=== PATIENT | female | born 1970 | race Caucasian/White ===

== ENCOUNTER 2017-07-14 08:33 | Emergency (ER) | payer SELFPAY ==
--- NOTE | ~2017-07-14 | ER ---
PATIENT'S NAME: AUDREY TERRELL [facility] AGE: 47 Y [address] ROOM: [place] [address] LOCATION: ED ADMIT DATE: 07/14/2017 ER/Outpatient Report DISCHARGE DATE: 07/14/2017 FAMILY PHYSICIAN: , SONIYA ATTENDING PHYSICIAN: Cheyenne Maire Time of Arrival: 0833 hours. Time of Evaluation/Seen: 0838 hours. IDENTIFICATION: A 47-year-old female. CHIEF COMPLAINT: Shortness of breath. HISTORY OF PRESENT ILLNESS: The patient is a 47-year-old female from [place] here visiting in [place] today and will be traveling [place], [place] next, who has COPD and has been more short of breath with increased cough for the last few days. Cough is nonproductive. She has no fever, but she has felt chilled. She has no other problems or concerns. She is using her albuterol nebulizer without relief. She was on prednisone just over a week ago. PAST MEDICAL HISTORY: ALLERGIES: SULFA. CURRENT MEDICATIONS: 1. Gabapentin 800 mg t.i.d. 2. Albuterol nebulizer p.r.n. MEDICAL PROBLEMS: 1. COPD. 2. Back and neck pain. 3. Neuropathy. PAST SURGICAL HISTORY: Prior Surgeries: 1. section x3. 2. Ureteral surgery x2 as a child. SOCIAL HISTORY: The patient lives in [place]. Tobacco use, 1/2 pack per day. Alcohol use, denies. Drug use, denies. PATIENT'S NAME: AUDREY TERRELL [facility] AGE: 47 Y [address] ROOM: [place] [address] LOCATION: ED ADMIT DATE: 07/14/2017 ER/Outpatient Report DISCHARGE DATE: 07/14/2017 FAMILY PHYSICIAN: PHYSICIAN, SOINYA ATTENDING PHYSICIAN: Cheyenne Marie REVIEW OF SYSTEMS: All systems were reviewed and negative other than what is noted in the HPI. The patient did get out while traveling every 2 hours and walk. She has had no increased lower extremity edema. The patient did fall yesterday and landed on her left knee and is complaining of left knee pain. PHYSICAL EXAMINATION: VITAL SIGNS: Weight 47.9 kg. Blood pressure 140/104, recheck blood pressure was 142/87, pulse 104, repeat pulse 93, respiratory rate is 28, repeat respiratory rate is 18, temperature 96.7, and saturations 97% on room air. GENERAL: A 47-year-old female, in no acute distress. HEENT: Head; normocephalic and atraumatic. Ears; TMs translucent in both ears. Nose; mucosa pink, no lesions. Mouth; no lesions. Pharynx, benign. NECK: Supple. No lymphadenopathy. LUNGS: Diminished breath sounds. No wheezes. HEART: Sinus tachycardia. No murmur, rub, or gallop. ABDOMEN: Bowel sounds present. Soft, nondistended, and nontender. SKIN: [place], warm, and dry. No lesions or rashes noted. NEUROLOGIC: No focal deficit. No lower extremity edema. She does have chronic scarring on both of her legs. EXTREMITIES: Left knee tender to palpation. Full range of motion. No swelling or deformities noted. LABORATORY DATA AND IMAGING STUDIES: X-ray, no acute fracture or dislocation. Pending Radiology over-read. Chest x-ray, 2 view, no acute findings. Pending Radiology over-read. DuoNeb aerosol treatment was given as well as 125 mg of IV Solu-Medrol. Her symptoms improved. Her heart rate came down. Her blood pressure improved, and she was feeling much better. Laboratory work; procalcitonin is less than 0.05. White count 13.9, normal differential, hemoglobin 13.2, hematocrit 38.4, and platelets 312,000. Lactate 3.0. Sodium 137, potassium 4.5, chloride 105, CO2 of 23, BUN 12, creatinine 0.8, and blood sugar 120. Liver enzymes, normal. Cardiac enzymes, negative. ProBNP 118. D-dimer is less than 0.19. EKG; normal sinus rhythm at 96 beats per minute. No acute ST elevation or depression. IMPRESSION: 1. Chronic obstructive pulmonary disease exacerbation. 2. Left knee pain. 3. Neuropathy. PLAN: 1. Albuterol aerosol treatment q.4 hours p.r.n., prednisone 20 mg b.i.d. for PATIENT'S NAME: AUDREY TERRELL [facility] AGE: 47 Y [address] ROOM: [place] [address] LOCATION: [facility] ADMIT DATE: 07/14/2017 ER/Outpatient Report DISCHARGE DATE: 07/14/2017 FAMILY PHYSICIAN: PHYSICIAN, NO ATTENDING PHYSICIAN: Cheyenne Marie 5 days. Follow up immediately if any respiratory distress. Otherwise, follow up with primary care physician in 1 week. 2. Left knee pain. No fracture. Matt, ice, and elevate. Crutches and weight bear as tolerated. Anti-inflammatories or Tylenol, and follow up as needed. 3. Neuropathy and chronic pain. She requested a refill of some Neurontin to get her by until she returns home. I did give her, dispensed #20, 800 mg t.i.d. The patient understands and agrees, and all questions have been answered. CHEYENNE MARIE MD CAR/lili /[id number] d: 07/14/17 1645 t: 07/22/171, OUTPATIENT REPORT
[2017-07-14 09:03] LABS: BASOPHIL % 0.3 %; EOSINOPHIL % 0.2 %; HEMATOCRIT 38.4 % (33.0-46.0); HEMOGLOBIN 13.2 g/dL (10.0-15.0); IMMATURE GRANULOCYTE # 0.1 K/uL (0.0-0.3); IMMATURE GRANULOCYTE % 0.5 %; LYMPHOCYTE # 2.2 K/uL (0.8-4.0); LYMPHOCYTE % 16.1 %; MCH 32.4 pg (27.0-34.0); MCHC 34.4 gm/dL (32.0-36.5); MCV 94.3 fl (83.0-98.0); MONOCYTE % 7.1 %; MPV 10.5 fl (9.4-12.4); NEUTROPHIL # (ANC) 10.5 K/uL (1.8-7.8); NEUTROPHIL % 75.8 %; NRBC % 0 /100WBC (0-0.00); PLATELET COUNT 312 K/uL (150-450); RBC 4.07 M/uL (3.50-5.50); WBC 13.9 K/uL (4.0-11.0)
[2017-07-14 09:25] LABS: ALBUMIN 3.4 gm/dL (3.5-5.0); ALK PHOS 77 IU/L (33-138); ALT 22 IU/L (12-78); BLOOD UREA NITROGEN 12 mg/dL (6-24); CALCIUM 8.8 mg/dL (8.5-10.5); CHLORIDE 105 mMol/L (96-110); CO2 23 mMol/L (22-32); CREATININE 0.8 mg/dL (0.5-1.1); SODIUM 137 mMol/L (135-145); TOTAL BILIRUBIN 0.3 mg/dL (0.0-1.5); TOTAL PROTEIN 7.3 g/dL (6.0-8.4)
[2017-07-14 09:28] LABS: ANION GAP 13.5 (10.0-19.0); AST 35 IU/L (10-40); CPK 171 IU/L (21-215); POTASSIUM 4.5 mMol/L (3.7-5.1)
== END 2017-07-14 10:07 | disposition disaster alternative care site (69) ==
LOC: GMED 08:33
PROVIDERS: Family Medicine
DX: J44.1 Chronic obstructive pulmonary disease with (acute) exacerbation (principal); M25.562 Pain in left knee; G62.9 Polyneuropathy, unspecified; F17.210 Nicotine dependence, cigarettes, uncomplicated; Z98.890 Other specified postprocedural states; Z79.899 Other long term (current) drug therapy; Z88.2 Allergy status to sulfonamides
CPT/HCPCS: J2930